=== PATIENT | female | born 2000 | race Two or more races ===

== ENCOUNTER → 2022-10-17 13:26 | Outpatient (BNVA) | payer BC, SELFPAY | PROVIDERS: Family Provider Nurse Practitioner Family; PCP Nurse Practitioner Family; Visit Provider Nurse Practitioner Family | DX: S30.860A Insect bite (nonvenomous) of lower back and pelvis, initial encounter (principal); W57.XXXA Bitten or stung by nonvenomous insect and other nonvenomous arthropods, initial encounter; R53.83 Other fatigue; Z91.09 Other allergy status, other than to drugs and biological substances | CPT/HCPCS: 82785; 86000; 86003; 86618; 86666; 86757 ==